=== PATIENT | female | born 1965 | race Caucasian/White ===

== ENCOUNTER 2019-03-10 16:07 | Emergency (ER) | payer OTHER ==
[2019-03-10 16:18] VITALS: BP 119/72
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
[2019-03-10] MEDS ORDERED: FLEXERIL PO ONE (17:44)
[2019-03-10] MEDS ORDERED: IBUPROFEN PO ONE (17:44)
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
== END 2019-03-10 18:55 | disposition home or self-care (01) ==
LOC: ED 16:07
DX: S16.1XXA Strain of muscle, fascia and tendon at neck level, initial encounter (principal); S39.012A Strain of muscle, fascia and tendon of lower back, initial encounter; V49.59XA Passenger injured in collision with other motor vehicles in traffic accident, initial encounter; Y93.89 Activity, other specified; Y92.488 Other paved roadways as the place of occurrence of the external cause; Y99.8 Other external cause status
CPT/HCPCS: 72040; 72070; 99283